=== PATIENT | male | born 1970 | race Caucasian/White ===

== ENCOUNTER → 2020-11-02 09:24 | Outpatient (CLI) | payer OTHER, SELFPAY ==
[2020-11-02 12:56] LABS: Add Manual Diff / Slide Review NO; Basophils Absolute Auto 0 /uL (0-100); Basophils Percent Auto 0.7 % (0-2); Eosinophils Absolute Auto 200 /uL (0-450); Eosinophils Percent Auto 3.7 % (2-4); Hematocrit 43.5 % (41-53); Hemoglobin 14.4 g/dL (13.5-17.5); Lymphocytes Absolute Auto 1800 /uL (1100-4500); Lymphocytes Percent Auto 29.1 % (25-40); Mean Corpuscular Hemoglobin 28.1 PG (26-34); Mean Corpuscular Volume 85.1 fL (80-100); Monocytes Absolute Auto 700 /uL (0-900); Monocytes Percent Auto 10.9 % (3-14); Neutrophils Absolute Auto 3400 /uL (1500-7000); Neutrophils Percent Auto 55.6 % (50-75); Platelet Count 266 X10^3/uL (150-400); Red Blood Cell Count 5.11 X10^6/uL (4.5-5.9); White Blood Cell Count 6.2 X10^3/uL (4.5-11.0)
[2020-11-02 13:28] LABS: Alanine Aminotransferase 23 IU/L (<50); Albumin 4.2 g/dL (3.5-5.0); Albumin Globulin Ratio 1.5 (1.0-2.8); Alkaline Phosphatase 49 U/L (38-126); Aspartate Aminotransferase 29 IU/L (17-59); BUN Creatinine Ratio 16.3 (6-22); Bilirubin Total 0.3 mg/dL (0.2-1.3); Blood Urea Nitrogen 13 mg/dL (9-20); Calcium 9.5 mg/dL (8.4-10.2); Carbon Dioxide 28 mmol/L (22-32); Chloride 104 mmol/L (98-107); Cholesterol 187 mg/dL (140-199); Estimated Glomerular Filt Rate > 60.0 mL/min (>60); Globulin 2.8 g/dL (1.7-4.1); Glucose 97 mg/dL (70-100); HDL Cholesterol 31 mg/dL (40-60); HEMOLYSIS < 15 (0-50); LDL Cholesterol Calculated 137 mg/dL (<100); Potassium 4.6 mmol/L (3.4-5.1); Sodium 140 mmol/L (137-145); Triglycerides 95 mg/dL (35-150)
[2020-11-02 13:57] LABS: TSH w/ Reflex to FT4 2.34 uIU/mL (0.47-4.68)
[2020-11-02 14:07] LABS: Volume Semen 4 (1.0-5.0)
[2020-11-02 14:08] LABS: Liquefaction Semen YES (YES); PH Semen 9 (7-8); Sperm Count 69 x10^6/mL (20-150); Sperm Motility 75% % Motile
[2020-11-02 14:09] LABS: Sperm Morphology 56 %ABNORM (0-30)
== END ==
PROVIDERS: PCP Family Medicine; Referring Provider Family Medicine; Visit Provider Family Medicine
DX: N46.9 Male infertility, unspecified (principal)
CPT/HCPCS: 36415; 80053; 80061; 84443; 85025; 89320

== ENCOUNTER → 2020-11-12 08:35 | Outpatient (CLI) | payer OTHER, SELFPAY ==
[2020-11-12 10:16] LABS: Follicle Stimulating Hormone 5.99 mIU/mL; Luteinizing Hormone 1.89 mIU/mL
[2020-11-12 13:10] LABS: Liquefaction Semen YES (YES); PH Semen 8.5 (7-8); Sperm Count 23 x10^6/mL (20-150); Sperm Morphology 55 %ABNORM (0-30); Volume Semen 4.5 (1.0-5.0)
[2020-11-29 13:32] LABS: Testosterone Free 16.63; Testosterone Total 414.8
[2020-11-29 13:33] LABS: Percent Free Testosterone 4.01
== END ==
PROVIDERS: PCP Family Medicine; Referring Provider Family Medicine; Visit Provider Family Medicine
DX: N46.9 Male infertility, unspecified (principal); Z13.29 Encounter for screening for other suspected endocrine disorder
CPT/HCPCS: 36415; 83001; 83002; 84402; 84403; 89320